=== PATIENT | male | born 1975 | race Two or more races ===

== ENCOUNTER 2017-03-02 23:17 | Emergency (ER) | payer MEDICAID, OTHER ==
[~2017-03-02] VITALS: Ht 172.7 cm; Wt 102.1 kg
--- NOTE | 2017-03-02 23:30 | NUR ---
TO BED 5 A 41 YO MALE BIBRA AND PT STATES HE VOMITED BLOOD AND PASSED OUT AFTER DRINKING 20 BEERS AND DOING COKE AND METH X3 HOURS. PATIENT IS AAOX2, RESPONSIVE, NAD NOTED, NONDIAPHORETIC. PLACED ON CARDIAC AND VS MONITORING. SAFETY AND COMFORT MEAURES RENDERED. DR BAIG AT BEDSIDE TO [facility].
--- NOTE | 2017-03-02 23:35 | NUR ---
STARTED 2 SALINE LOCKS ON THE LAC G16, BLOOD DRAWN AND SENT TO LAB; SONAL G16.
--- NOTE | 2017-03-02 23:45 | NUR ---
PATIENT BECAME RESTLESS, AGITATED SAYING "MY MOUTH IS DRY DO SOMETHING." DR BAIG IS AWARE. MEDICATED PATIENT ORDERED.
[2017-03-02 23:46] LABS: BASOPHILS % (AUTO) 0.3 % (0.0-2.0); EOSINOPHILS # (AUTO) 0.1 /CMM (0.0-0.7); EOSINOPHILS % (AUTO) 1.2 % (0.0-6.0); HEMATOCRIT 46 % (39-51); HEMOGLOBIN 15.5 g/dL (13.5-17.5); LYMPHOCYTES # (AUTO) 1.4 /CMM (0.8-4.8); MEAN CORPUSCULAR HEMOGLOBIN 29 PG (26.0-33.0); MEAN CORPUSCULAR HGB CONC 34 g/dl (31.0-36.0); MEAN CORPUSCULAR VOLUME 86 fL (80-96); MONOCYTES # (AUTO) 0.5 /CMM (0.1-1.30); MONOCYTES % (AUTO) 6.8 % (2.0-12.0); NEUTROPHILS # (AUTO) 5.8 /CMM (1.8-8.9); NEUTROPHILS % (AUTO) 73.7 % (43.0-81.0); PLATELET COUNT (AUTO) 271 /CMM (150-450); RDW COEFFICIENT OF VARIATION 13.2 (11.5-15.0); RED BLOOD CELL COUNT(AUTO) 5.36 MIL/uL (4.5-6.0); WHITE BLOOD COUNT (AUTO) 7.9 K/uL (4.3-11.0)
[2017-03-02 23:58] LABS: CALCIUM, SERUM 9.3 mg/dL (8.5-10.1); CREATININE 1.1 mg/dL (0.6-1.3); POTASSIUM 3.2 mmol/L (3.5-5.1)
[2017-03-03] LABS: INR 0.98 (0.87-1.13); PROTHROMBIN TIME 10.2 SECS (9.5-12.7)
[2017-03-03 00:07] LABS: ALBUMIN 4.5 g/dL (3.4-5.0); BILIRUBIN,DIRECT 0.2 mg/dL (0.0-0.2); BILIRUBIN,TOTAL 0.9 mg/dL (0.2-1.0); TOTAL PROTEIN, SERUM 8.6 g/dL (6.4-8.2)
--- NOTE | 2017-03-03 00:26 | NUR ---
I attempted to placed ngt per Dr York's orders. Explained patient risks and benefits/rationale of ngt placement. Patient refused. Encouraged x2, patient still refused.
--- NOTE | 2017-03-03 02:53 | NUR ---
IV's removed. Catheter intact and site benign. Pressure and 4x4 applied to site. No bleeding noted. dPatient discharged to home in stable condition. Written and verbal after care instructions given. Patient verbalizes understanding of instruction. Patient is ambulatory with steady gait, accompanied by friend Yue. Patient is instructed not to drive. No further complaints.
[2017-03-03 02:54] VITALS: BP 154/89
== END 2017-03-03 02:55 | disposition home or self-care (01) ==
LOC: ER 23:20
DX: F15.90 Other stimulant use, unspecified, uncomplicated (principal); K92.0 Hematemesis; F10.129 Alcohol abuse with intoxication, unspecified
CPT/HCPCS: 36415; 71010-TC; 80048-TC; 80076-TC; 83690-TC; 85025-TC; 85730-TC; A4606; C9113; G0480; J2060; J7030; Z7610

== ENCOUNTER 2018-12-26 00:32 | Emergency (ER) | payer MEDICAID ==
--- NOTE | 2018-12-26 00:39 | NUR ---
CALLED PT IN WAITING ROOM. NO RESPONSE. WILL FOLLOW UP.
--- NOTE | 2018-12-26 01:34 | NUR ---
CALLED PT IN WAITING ROOM. NO RESPONSE. WILL FOLLOW UP.
--- NOTE | 2018-12-26 01:58 | NUR ---
CALLED PT IN WAITING ROOM. NO RESPONSE. WILL FOLLOW UP.
== END 2018-12-26 01:59 | disposition left against medical advice (07) ==
LOC: ER 00:39
DX: Z53.21 Procedure and treatment not carried out due to patient leaving prior to being seen by health care provider (principal)

== ENCOUNTER 2018-12-26 03:52 | Emergency (ER) | payer MEDICAID ==
[~2018-12-26] VITALS: Ht 182.9 cm; Wt 99.8 kg
[2018-12-26 04:49] VITALS: BP 151/102
== END 2018-12-26 05:20 | disposition home or self-care (01) ==
LOC: ER 03:53
DX: F15.10 Other stimulant abuse, uncomplicated (principal); F17.200 Nicotine dependence, unspecified, uncomplicated
CPT/HCPCS: 71045-TC